=== PATIENT | male | born 1965 | race Caucasian/White ===

== ENCOUNTER → 2017-09-09 | Outpatient (CLI) | payer MEDICARE, OTHER | END | disposition home or self-care (01) | LOC: RAD 10:52 | DX: M79.89 Other specified soft tissue disorders (principal); M79.671 Pain in right foot; M25.571 Pain in right ankle and joints of right foot | CPT/HCPCS: 73610; 73630 ==

== ENCOUNTER → 2018-10-17 | Outpatient (CLI) | payer MEDICARE, OTHER ==
[2016-01-15 13:13] VITALS: BP 117/75
[~2018-10-17] MED LIST: GLIM2TAB2 PO; LITH300C PO; LOSA25TA54 PO; LOXA25CA PO; METF10007 PO; MULT-246 PO; NIAC500C PO; OMEG500C PO; PROP20TA PO; SERT100T8 PO; SIMV20TA3 PO; VITA1CAP PO
--- NOTE | 2018-10-17 15:59 | KCIC ---
EXAM: PA, oblique and lateral views of the bilateral hands and wrists DATE: 10/17/2018 12:00 AM INDICATION: Bilateral hand and wrist pain. Bruising to radial aspect of the wrist. COMPARISON: No Prior FINDINGS: There is no evidence for acute fracture or dislocation of either wrist or hand. Joint spaces are grossly preserved. Normal bone density. Mild soft tissue swelling is seen about the left wrist. IMPRESSION: No evidence of acute fracture or dislocation. If there is persistent clinical concern for fracture, follow-up radiographs in 10-14 days is recommended. Electronically signed by: Jono Mullen MD (10/17/2018 3:56 PM) [id number]
== END | disposition home or self-care (01) ==
LOC: KCIC 10:10
PROVIDERS: ATTEND Physician Assistant Medical
DX: S69.82XA Other specified injuries of left wrist, hand and finger(s), initial encounter (principal); S69.81XA Other specified injuries of right wrist, hand and finger(s), initial encounter; R22.32 Localized swelling, mass and lump, left upper limb; X58.XXXA Exposure to other specified factors, initial encounter; Y93.89 Activity, other specified; Y92.89 Other specified places as the place of occurrence of the external cause; Y99.8 Other external cause status
CPT/HCPCS: 73110; 73130